=== PATIENT | female | born 1935 | race African-American/Black ===

== ENCOUNTER 2016-10-09 08:54 | Outpatient (CLI) | payer MEDICARE, OTHER | END 2016-10-09 08:55 | disposition home or self-care (01) | DX: M85.80 Other specified disorders of bone density and structure, unspecified site (principal) ==

== ENCOUNTER 2016-11-12 08:03 | Outpatient (CLI) | payer MEDICARE, OTHER | END 2016-11-12 08:04 | disposition home or self-care (01) | DX: K76.0 Fatty (change of) liver, not elsewhere classified (principal); K21.9 Gastro-esophageal reflux disease without esophagitis; Z90.49 Acquired absence of other specified parts of digestive tract ==

== ENCOUNTER 2018-01-20 10:33 | Outpatient (CLI) | payer MEDICARE, OTHER ==
--- NOTE | 2018-01-21 11:38 | XRAY Report ---
RIGHT KNEE, THREE VIEWS: 01/20/2018 HISTORY: Pain. COMPARISON: None. FINDINGS: There is minimal degenerative spurring along the medial knee joint and articular surface of the patella. Quadriceps tendon insertion enthesopathy. Small suprapatellar effusion. No evidence of fracture, malalignment, advanced joint space narrowing , bone destruction or other finding. IMPRESSION: MILD RIGHT KNEE DEGENERATIVE CHANGE COMMENSURATE WITH THE PATIENT' S AGE WITH SMALL SUPRAPATELLAR EFFUSION. NO OTHER ACUTE FINDINGS. TD: 01/21/2018 10:56 LEO
== END 2018-01-20 10:34 | disposition home or self-care (01) ==
LOC: DI.N 10:33
PROVIDERS: ATTEND Internal Medicine
DX: M25.461 Effusion, right knee (principal); S89.91XS Unspecified injury of right lower leg, sequela; W19.XXXS Unspecified fall, sequela

== ENCOUNTER 2018-01-29 10:23 | Outpatient (CLI) | payer MEDICARE, OTHER ==
--- NOTE | 2018-01-31 15:16 | Mammography Report ---
Procedure Date: 01/29/2018 Accession Number: [id number] / [id number] Procedure: MGN - Screening Mammo Dig Bilat CPT Code: FULL RESULT: EXAM: Screening Mammo Dig Bilat DATE: 01/29/2018 10:45 AM CLINICAL HISTORY: 82-year-old for screening TECHNIQUE: Bilateral CC, laterally exaggerated CC, MLO views were obtained. COMPARISON: 05/29/2016, 12/29/2013, 11/17/2012, 08/14/2011, 08/22/2010 FINDINGS: The breasts demonstrate heterogeneously dense fibroglandular parenchyma bilaterally. A few punctate, typically benign calcifications are present. No suspicious masses, clustered microcalcifications, or regions of architectural distortion are identified. IMPRESSION: Benign findings RECOMMENDATION: Routine annual screening unless otherwise clinically indicated. BIRADS CATEGORY 2: Benign findings STANDARD QUALIFYING STATEMENTS: 1. This examination was reviewed with the aid of Computer-Aided Detection (CAD). 2. A negative or benign imaging report should not delay biopsy if clinically suspicious findings are present. Consider surgical consultation if warrented. More than 5% of cancers are not identified by imaging. 3. Dense breasts may obscure an underlying neoplasm.
== END 2018-01-29 10:24 | disposition home or self-care (01) ==
LOC: DI.N 10:23
PROVIDERS: ATTEND Internal Medicine
DX: Z12.31 Encounter for screening mammogram for malignant neoplasm of breast (principal)
CPT/HCPCS: 77067

== ENCOUNTER 2018-03-14 09:21 | Outpatient (CLI) | payer MEDICARE, OTHER ==
--- NOTE | 2018-03-14 11:41 | Ultrasound Report ---
Procedure Date: 03/14/2018 Accession Number: [id number] / [id number] Procedure: US - Abdomen Complete CPT Code: FULL RESULT: EXAM: Abdomen Complete DATE: 03/14/2018 10:48 AM CLINICAL HISTORY: ABDOMINAL PAIN COMPARISON: Abdominal ultrasound 11/12/2016. TECHNIQUE: Real-time scanning was performed with static images obtained. FINDINGS: Liver: Somewhat echogenic with coarse echotexture, decreasing sensitivity for masses however, no masses seen. The sonographic appearance is most often seen with hepatic steatosis. At least 14 cm. Main portal vein flow: Hepatopetal. Gallbladder: The patient is status post cholecystectomy. Biliary System: Common bile duct measures 6 mm. No intrahepatic or extrahepatic ductal dilatation. Pancreas: Visualized portion is unremarkable. Kidneys: Right: 8.7 cm longitudinally. Normal. No contour-deforming mass, stones, or hydronephrosis. IVC and aorta are unremarkable by grayscale ultrasound. IMPRESSION: Echogenic liver, likely hepatic steatosis. RADIA
== END 2018-03-14 09:22 | disposition home or self-care (01) ==
LOC: DI 09:21
PROVIDERS: ATTEND Internal Medicine
DX: K58.9 Irritable bowel syndrome, unspecified (principal); R10.9 Unspecified abdominal pain
CPT/HCPCS: 76700

== ENCOUNTER 2018-05-22 11:49 | Outpatient (CLI) | payer MEDICARE, OTHER ==
--- NOTE | 2018-05-22 15:49 | XRAY Report ---
Reason: OTHER SPECIFIED ARTHRITIS, UNSPECIFIED HAND Procedure Date: 05/22/2018 Accession Number: [id number] / [id number] Procedure: XRN - Hand 3 View BILAT CPT Code: FULL RESULT: EXAMS: 1. RIGHT HAND RADIOGRAPHY 2. LEFT HAND RADIOGRAPHY EXAM DATE: 05/22/2018 12:12 PM. CLINICAL HISTORY: Other specified arthritis, unspecified hand. COMPARISON: None. TECHNIQUE: 3 views each hand. FINDINGS: Right: Bones: Normal. No fractures or bone lesions. Joints: There is joint space loss at the interphalangeal joints which is most pronounced at the second distal interphalangeal joint and third proximal interphalangeal joint as well as the first carpometacarpal joint. Soft Tissues: Normal. No soft tissue swelling. Left: Bones: Normal. No fractures or bone lesions. Joints: Interphalangeal joint space narrowing is more pronounced in the left hand with a distal interphalangeal joint predominant pattern with the exception of the third proximal interphalangeal joint and the first carpometacarpal joint. Soft Tissues: Normal. No soft tissue swelling. IMPRESSION: Left greater than right osteoarthrosis. RADIA
== END 2018-05-22 11:50 | disposition home or self-care (01) ==
LOC: DI.N 11:49
PROVIDERS: ATTEND Internal Medicine
DX: M19.042 Primary osteoarthritis, left hand (principal); M19.041 Primary osteoarthritis, right hand

== ENCOUNTER 2018-09-03 08:59 | Outpatient (CLI) | payer MEDICARE, OTHER ==
--- NOTE | 2018-09-03 15:34 | Ultrasound Report ---
Reason: UPPER ABDOMINAL PAIN, UNSPECIFIED Procedure Date: 09/03/2018 Accession Number: [id number] / [id number] Procedure: US - Abdomen Complete CPT Code: FULL RESULT: EXAM: ABDOMEN ULTRASOUND EXAM DATE: 09/03/2018 10:45 AM. CLINICAL HISTORY: UPPER ABDOMINAL PAIN, UNSPECIFIED. COMPARISON: 03/14/2018. TECHNIQUE: Real-time scanning was performed with static images obtained. FINDINGS: Liver: Normal in size and increased in echotexture. 13.1 cm. Main portal vein flow: Hepatopetal. Gallbladder: Surgically absent Biliary System: Common bile duct measures 4.1 mm. No intrahepatic or extrahepatic ductal dilatation. Pancreas: Imaged portion is unremarkable. Kidneys: Right: 7.6 cm longitudinally. Normal. No contour-deforming mass, stones, or hydronephrosis. Left: 8.8 cm longitudinally. Normal. No contour-deforming mass, stones, or hydronephrosis. Spleen: 7.4 cm. Normal in size and echotexture. Aorta and Inferior Vena Cava: Unremarkable. Free fluid: None. IMPRESSION: Increased hepatic echogenicity suggests fatty infiltration. Status post cholecystectomy. Otherwise negative and similar to priors. RADIA
== END 2018-09-03 09:00 | disposition home or self-care (01) ==
LOC: DI 08:59
PROVIDERS: ATTEND Internal Medicine
DX: R10.10 Upper abdominal pain, unspecified (principal); K76.0 Fatty (change of) liver, not elsewhere classified; Z90.49 Acquired absence of other specified parts of digestive tract
CPT/HCPCS: 76700

== ENCOUNTER 2019-04-21 07:43 | Outpatient (CLI) | payer MEDICARE, OTHER ==
--- NOTE | 2019-04-21 17:01 | Ultrasound Report ---
Reason: UNSPECIFIED ABDOMINAL PAIN, LUQ Procedure Date: 04/21/2019 Accession Number: [id number] / [id number] Procedure: US - Abdomen Complete CPT Code: FULL RESULT: EXAM: ABDOMEN ULTRASOUND EXAM DATE: 04/21/2019 08:48 AM. CLINICAL HISTORY: UNSPECIFIED ABDOMINAL PAIN, LUQ. COMPARISON: ABDOMEN COMPLETE 09/03/2018 9:45 AM ABDOMEN COMPLETE 03/14/2018 9:34 AM. TECHNIQUE: Real-time scanning was performed with static images obtained. FINDINGS: Liver: Normal in size and slightly increased in echotexture. 14.5 cm. Main portal vein flow: Hepatopetal. Gallbladder: Status post cholecystectomy. Biliary System: Common bile duct measures 6 mm. No intrahepatic or extrahepatic ductal dilatation. Pancreas: Obscured by bowel gas. Kidneys: Partially obscured by bowel gas. Right: 7.9 cm longitudinally. Normal. No contour-deforming mass, stones, or hydronephrosis. Left: 8.9 cm longitudinally. Normal. No contour-deforming mass, stones, or hydronephrosis. Spleen: 8.5 cm. Normal in size and echotexture. Aorta and Inferior Vena Cava: Unremarkable. Free fluid: None. IMPRESSION: Similar in appearance to prior ultrasounds of 03/14/2018 and 09/03/2018. Status post cholecystectomy with normal common bile duct size. Mild fatty infiltration of the liver.. Otherwise negative. RADIA
== END 2019-04-21 07:44 | disposition home or self-care (01) ==
LOC: DI 07:43
PROVIDERS: ATTEND Internal Medicine
DX: K76.0 Fatty (change of) liver, not elsewhere classified (principal); R10.12 Left upper quadrant pain; Z90.49 Acquired absence of other specified parts of digestive tract
CPT/HCPCS: 76700

== ENCOUNTER 2019-07-06 10:44 | Outpatient (CLI) | payer MEDICARE, OTHER | END 2019-07-06 10:45 | disposition home or self-care (01) | LOC: NS 10:44 | PROVIDERS: ATTEND Internal Medicine | DX: Z71.3 Dietary counseling and surveillance (principal); E11.22 Type 2 diabetes mellitus with diabetic chronic kidney disease; N18.3 Chronic kidney disease, stage 3 (moderate); E03.9 Hypothyroidism, unspecified; E78.5 Hyperlipidemia, unspecified | CPT/HCPCS: 97802 ==

== ENCOUNTER 2019-12-22 12:52 | Outpatient (CLI) | payer MEDICARE, OTHER ==
--- NOTE | 2019-12-22 20:01 | XRAY Report ---
Reason: CARDIOMEGALY Procedure Date: 12/22/2019 Accession Number: [id number] / [id number] Procedure: XR - Chest 2 View X-Ray CPT Code: 73297 Final Report FULL RESULT: EXAM: CHEST RADIOGRAPHY EXAM DATE: 12/22/2019 01:19 PM. CLINICAL HISTORY: CARDIOMEGALY. Increasing shortness of breath. COMPARISON: CHEST 2 VIEW PA/LAT 07/30/2017 11:21 AM. TECHNIQUE: 2 views. FINDINGS: Lungs/Pleura: Minimal bandlike atelectasis or scarring at the medial left lung base, as before. Otherwise clear. No pleural effusion. No pneumothorax. Normal volumes. Mediastinum: Heart and mediastinal contours are unremarkable. Other: None. IMPRESSION: Normal 2-view chest radiography. RADIA
== END 2019-12-22 12:53 | disposition home or self-care (01) ==
LOC: DI 12:52
PROVIDERS: ATTEND Internal Medicine
DX: I51.7 Cardiomegaly (principal)
CPT/HCPCS: 71046

== ENCOUNTER 2020-04-12 06:57 | Outpatient (CLI) | payer MEDICARE, OTHER ==
--- NOTE | 2020-04-12 09:12 | Ultrasound Report ---
PROCEDURE: Abdomen Complete INDICATIONS: ABD PAIN TECHNIQUE: Real-time scanning was performed of the abdominal and retroperitoneal organs, with image documentatio n. COMPARISON: Ultrasound abdomen, 04/21/2019. FINDINGS: Liver: Liver is normal in size and demonstrates mildly increased hepatic echotexture. Gallbladder: Surgically removed. Biliary ducts: Intrahepatic bile ducts are non-dilated. Extrahepatic bile duct caliber measures 4.5 mm. Normal is 6-7 mm or less in diameter, or 10 mm or less post-cholecystectomy. Pancreas: Visualized portions of the pancreas are sonographically normal. Spleen: Spleen is normal in size and homogeneous in echotexture. Kidneys: Kidneys are normal in size and echotexture. Right kidney measures 8.4 cm long; left kidney measures 8.6 cm long. No hydronephrosis or nephrolithiasis. No solid masses. Aorta: Visualized aorta is normal in caliber at less than 3 cm. Iliacs: Proximal common iliac arteries are not visualized IVC: Intrahepatic inferior vena cava is patent. Miscellaneous: No free abdominal fluid. IMPRESSION: 1. Liver demonstrates increased echotexture consistent with hepatic fatty infiltration. Other hepatoc ellular disease may have a similar appearance. Please correlate with liver enzymes. 2. Cholecystectomy. Reviewed by: Kaushik Downs MD on 04/12/2020 9:11 AM PDT Approved by: Kaushik Downs MD on 04/12/2020 9:11 AM PDT Station ID: [id number]
== END 2020-04-12 06:58 | disposition home or self-care (01) ==
LOC: DI 06:57
PROVIDERS: ATTEND Internal Medicine
DX: R10.9 Unspecified abdominal pain (principal); Z90.49 Acquired absence of other specified parts of digestive tract
CPT/HCPCS: 76700

== ENCOUNTER 2020-04-12 07:03 | Outpatient (CLI) | payer MEDICARE, OTHER ==
--- NOTE | 2020-04-13 12:38 | Ultrasound Report ---
LIMITED ULTRASOUND OF RIGHT BREAST: 04/12/2020 CLINICAL: Palpable right breast lump. Comparison is made to exams dated: 01/29/2018 mammogram, 05/29/2016 mammogram, 12/29/2013 mammogram, mammogram, 08/14/2011 mammogram, and 08/22/2010 mammogram - [facility]. Color flow and real-time ultrasound of the right breast 11 o'clock region were performed. Obrien scale images of the real-time examination were reviewed. There is a 2 cm x 1.1 cm x 2.1 cm oval mass with a circumscribed margin in the right breast at 11 o'c lock posterior depth 11 cm from the nipple. This oval mass is isoechoic to fat and parallel in orien tation with no posterior acoustic shadowing or enhancement. This correlates as palpated and with are a of clinical concern but was not seen on the prior mammogram. Color flow imaging demonstrates that there is no vascularity present. IMPRESSION: PROBABLY BENIGN The 2 cm x 1.1 cm x 2.1 cm oval mass in the right breast most likely is a lipoma and is probably charles gn. A follow-up right ultrasound in 6 months is recommended to demonstrate stability. Findings and recommendations were conveyed to the patient during today's evaluation. This exam was interpreted at Station ID: [id number]. Electronically Signed By: Sebastián López M.D. aty/:04/12/2020 09:52:51 Ultrasound BI-RADS: 3 Probably benign BI-RADS CATEGORY: (3) - 3 Ultrasound [id number] 6 month follow-up LATERALITY: (R)
--- NOTE | 2020-04-13 12:38 | Mammography Report ---
BILATERAL DIGITAL DIAGNOSTIC MAMMOGRAM 3D/2D: 04/12/2020 CLINICAL: Palpable right breast lump. Comparison is made to exams dated: 01/29/2018 mammogram, 05/29/2016 mammogram, 12/29/2013 mammogram, mammogram, 08/14/2011 mammogram, and 08/22/2010 mammogram - [facility]. The tissue of both breasts is heterogeneously dense. This may lower the sensitivity of mammography. No significant masses, calcifications, or other findings are seen in either breast. IMPRESSION: INCOMPLETE: NEEDS ADDITIONAL IMAGING EVALUATION There is no abnormality seen in the right breast to correspond with the area of clinical concern and palpable abnormality indicated by triangular marker in the posterior depth in the upper outer quadran t, however, ultrasound is recommendedwhich is scheduled to immediately follow this examination. This exam was interpreted at Station ID: [id number]. NOTE: For mammograms, a report in lay terms will be sent to the patient. Approximately 15% of breast malignancies will not be visualized mammographically. In the management of a palpable breast mass, a negative mammogram must not discourage biopsy of a clinically suspicious lesion. Electronically Signed By: Sebastián López M.D. aty/:04/12/2020 09:33:06 ACR BI-RADS Category 0: Incomplete 3340F PARENCHYMAL PATTERN: (D) - The breast(s) demonstrate(s) heterogeneously dense fibroglandular nadia sarmiento. BI-RADS CATEGORY: (0) - 0 Ultrasound [id number] Immediate follow-up LATERALITY: (R)
== END 2020-04-12 07:04 | disposition home or self-care (01) ==
LOC: DI 07:03
PROVIDERS: ATTEND Obstetrics & Gynecology
DX: N60.01 Solitary cyst of right breast (principal); N64.4 Mastodynia; N63.11 Unspecified lump in the right breast, upper outer quadrant
CPT/HCPCS: 76642; 77066

== ENCOUNTER 2020-05-13 12:52 | Outpatient (CLI) | payer MEDICARE, OTHER | END 2020-05-13 12:53 | disposition home or self-care (01) | LOC: COV 12:52 | PROVIDERS: ATTEND Internal Medicine | DX: R10.9 Unspecified abdominal pain (principal); D50.0 Iron deficiency anemia secondary to blood loss (chronic); K21.9 Gastro-esophageal reflux disease without esophagitis; R11.0 Nausea; Z20.828 Contact with and (suspected) exposure to other viral communicable diseases ==

== ENCOUNTER 2020-05-20 06:51 | Outpatient (CLI) | payer MEDICARE, OTHER ==
--- NOTE | 2020-05-20 08:28 | Ultrasound Report ---
PROCEDURE: Retroperitoneal INDICATIONS: RENAL FAILURE TECHNIQUE: Real-time scanning was performed of the retroperitoneal organs, with image documentation. COMPARISON: None. FINDINGS: Kidneys: Kidneys are asymmetrically reduced in size. Right kidney measures 7.6 cm long; left kidney measures 8.8 cm long. Right renal cortical thickness is 1.0 cm; left renal cortical thickness is 1. 0 cm. No solid masses, hydronephrosis, or nephrolithiasis. Quality of visualization is somewhat lenz ited by overlying bowel gas during imaging. Pancreas: Visualized portions of the pancreas are sonographically normal. Aorta: Visualized aorta is normal in caliber at 3 cm or less. Iliac arteries: Proximal common iliac arteries are normal in caliber at 2.5 cm or less. IVC: Intrahepatic inferior vena cava is patent. Miscellaneous: No free abdominal fluid. Prevoid bladder volume is 36 cc, postvoid residual of 0 IMPRESSION: No sign of hydronephrosis or nephrolithiasis. Asymmetrically smaller right kidney when compared to th e left. Normal bladder function. Reviewed by: Garland Akins MD on 05/20/2020 8:26 AM PDT Approved by: Garland Akins MD on 05/20/2020 8:26 AM PDT Station ID: [id number]
== END 2020-05-20 06:52 | disposition home or self-care (01) ==
LOC: DI 06:51
PROVIDERS: ATTEND Internal Medicine Nephrology
DX: N17.9 Acute kidney failure, unspecified (principal)
CPT/HCPCS: 76770

== ENCOUNTER 2020-06-15 09:05 | Outpatient (CLI) | payer MEDICARE, OTHER | END 2020-06-15 09:06 | disposition home or self-care (01) | LOC: COV 09:05 | PROVIDERS: ATTEND Family Medicine | DX: R68.83 Chills (without fever) (principal); R43.9 Unspecified disturbances of smell and taste; Z20.828 Contact with and (suspected) exposure to other viral communicable diseases ==

== ENCOUNTER 2020-10-19 13:38 | Outpatient (CLI) | payer MEDICARE, OTHER ==
--- NOTE | 2020-10-20 08:38 | Ultrasound Report ---
LIMITED ULTRASOUND OF RIGHT BREAST: 10/19/2020 CLINICAL: Palpable right breast lump. Comparison is made to exams dated: 04/12/2020 ultrasound, 04/12/2020 mammogram, 05/29/2016 mammogram, 01/29/2018 mammogram, 12/29/2013 mammogram, and 11/17/2012 mammogram - [facility]. Color flow ultrasound of the right breast 11 o'clock region was performed. Obrien scale images of the real-time examination were reviewed. There is a stable 2 cm x 2 cm x 1 cm oval lipoma with a circumscribed margin in the right breast at 1 1 o'clock posterior depth 10 cm from the nipple with the long axis parallel to the skin. This oval l ipoma is isoechoic to adjacent tissue. This correlates as palpated. Color flow imaging demonstrates that there is no vascularity present. IMPRESSION: BENIGN There is no sonographic evidence of malignancy. The 2 cm lipoma in the right breast is stable and is benign. Return to annual mammogram screening schedule is recommended. Findings and recommendations were conveyed to the patient at time of exam. This exam was interpreted at Station ID: [id number]. Electronically Signed By: Brigitte sylvester/:10/19/2020 14:33:17 Ultrasound BI-RADS: 2 Benign BI-RADS CATEGORY: (2) - 2 RECOMMENDATION: (ANNUAL) - Recommend routine annual screening mammography. [id number] return to screening LATERALITY: (B)
== END 2020-10-19 13:39 | disposition home or self-care (01) ==
LOC: DI 13:38
PROVIDERS: ATTEND Obstetrics & Gynecology
DX: N60.01 Solitary cyst of right breast (principal); D17.1 Benign lipomatous neoplasm of skin and subcutaneous tissue of trunk

== ENCOUNTER 2020-10-26 10:55 | Emergency (ER) | payer MEDICARE, OTHER ==
[2020-10-26] MEDS ORDERED: diphenhydrAMINE INJ 50 MG/ML VIAL IM STA (12:43)
[2020-10-26] MEDS ORDERED: FAMOTIDINE 20 MG TABLET PO STA (12:43)
[2020-10-26] MEDS ORDERED: predniSONE 20 MG TABLET PO STA (12:44)
--- NOTE | 2020-10-26 12:48 | ED Physician Documentation ---
History of Present Illness - Stated complaint Stated Complaint: FACE SWELLING/ITCHING - Chief complaint Chief Complaint: Allergic Rx - Additonal information Additional information: 85-year-old female presents the emergency department for evaluation of lip swelling and generalized itchiness. No rash. She states that she has had similar in the past approximately 13 years ago for which she received Benadryl and a course of steroids. She denies any allergies other than tetracycline. No new foods medications or detergents. She is not taking an JOSE inhibitor. She noticed the lip swelling at about 3 AM. She denies chest pain or shortness of breath. Normal sweat phonation and swallow. She does have a history of hypertension and rheumatoid arthritis as well as anemia. Meds: amlodipine, metoprolol, hydrochlorothiazide, Plaquenil, isorbide, Pepcid. Review of Systems Constitutional: denies: Fever, Chills Eyes: reports: Reviewed and negative Ears: reports: Reviewed and negative Nose: reports: Reviewed and negative Throat: reports: Other (lip swelling) Cardiac: reports: Reviewed and negative Respiratory: reports: Reviewed and negative GI: reports: Abdominal Pain : reports: Reviewed and negative Skin: denies: Rash Musculoskeletal: reports: Reviewed and negative Neurologic: reports: Reviewed and negative PD PAST MEDICAL HISTORY - Past Medical History Past Medical History: Yes Cardiovascular: Hypertension, High cholesterol Respiratory: Asthma, Other Endocrine/Autoimmune: Type 2 diabetes, HyPOthyroidism GI: GERD, Diverticulitis, Other : Renal insuffiency, Other Musculoskeletal: Osteoarthritis, Other - Past Surgical History General: Cholecystectomy, Appendectomy, Bowel surgery, EGD /SOLAR FIELD SERVICE TECHNICIAN: Hysterectomy HEENT: Cataracts - Present Medications Home Medications: Ambulatory Orders Medication Instructions Recorded Confirmed Levothyroxine [Synthroid] 75 mcg PO QDAC 12/10/14 10/11/20 Metoprolol Tartrate [Lopressor] 50 mg PO BID 12/10/14 10/11/20 hydroCHLOROthiazide 12.5 mg PO DAILY 12/10/14 10/11/20 [Hydrochlorothiazide] Sitagliptin Phosphate [Januvia] 25 mg PO DAILY 09/20/15 10/11/20 Acetaminophen [Tylenol Extra 1 - 2 tab PO Q8HR PRN 01/05/20 10/11/20 Strength] Colchicine [Colcrys] 1 tab PO BID 01/05/20 10/11/20 Hydroxychloroquine [Plaquenil] 1 tab PO BID 01/05/20 10/11/20 amLODIPine [Norvasc] 1 tab PO DAILY 01/05/20 10/11/20 Ferrous Sulfate [High Potency Iron] 1 tab PO DAILY 04/05/20 10/11/20 Gabapentin 100 mg PO DAILY 04/05/20 10/11/20 Isosorbide Mononitrate [Isosorbide 60 mg PO DAILY 04/05/20 10/11/20 Mononitrate ER] Rosuvastatin Calcium 15 mg PO DAILY 04/05/20 10/11/20 Famotidine [Pepcid] 40 mg PO DAILY #6 tablet 10/26/20 diphenhydrAMINE [Benadryl] 25 mg PO BID #6 10/26/20 predniSONE [Deltasone] 40 mg PO DAILY #6 tab 10/26/20 - Allergies Allergies/Adverse Reactions: Allergies Allergy/AdvReac Type Severity Reaction Status Date / Time meperidine Allergy unknown Verified 10/26/20 11:27 propoxyphene Allergy unknown Verified 10/26/20 11:27 Sulfa (Sulfonamide Allergy unknown Verified 10/26/20 11:27 Antibiotics) Tetracyclines Allergy unknown Verified 10/26/20 11:27 - Social History Does the pt smoke?: No Smoking Status: Never smoker Does the pt drink ETOH?: No Does the pt have substance abuse?: No - Immunizations Immunizations are current?: Yes - POLST Patient has POLST: No PD ED PE EXPANDED - General General: Alert, No acute distress - HEENT HEENT: Atraumatic, PERRL, Moist mucous membranes, Pharynx normal, Other (Mild swelling to both of the lips. No tongue swelling. No swelling the floor of the mouth. Normal phonation. Full range of motion of neck in all planes.). No: Pharyngeal erythema, Swollen tonsils, Tonsillar exudate, ACCOUNTANT CONTROLLER - Cardiac Cardiac: Regular Rate, Murmur Present, Radial strong equal, Pedal strong equal, Cap refill < 2 sec - Respiratory Respiratory: Clear to ausultation virgen. No: Distress, Labored - Abdomen Abdomen: Normal Bowel sounds. No: Tender to palpation - Derm Derm: Normal color, Warm and dry - Extremities Extremities: Normal, Tenderness (Arthritic changes noted to the joints of the hands and fingers.) - Neuro Neuro: Alert and Oriented X 3, CNII-XII intact. No: Confused, Disoriented - GCS Eye Opening: Spontaneous Motor: Obeys Commands Verbal: Oriented Total: 15 Results - Vitals Vitals: Vital Signs - 24 hr 10/26/20 11:23 Temperature 36.5 C Heart Rate 58 L Respiratory 16 Rate Blood Pressure 145/78 H O2 Saturation 100 Oxygen O2 Source Room air PD MEDICAL DECISION MAKING - ED course Complexity details: re-evaluated patient, d/w patient ED course: 85-year-old female presents emergency department for evaluation of upper and lower lip swelling that began this morning as well as generalized itchiness. She has had similar in the past but the last time was approximately 13 years ago. No clear inciting medications foods or hygiene products. Patient was given Benadryl and a dose of prednisone here in the emergency department with the itchiness fully resolving and the lip swelling beginning to dissipate. She has no evidence of airway involvement or Kirk's angina. Patient will be discharged with prescription for Benadryl as well as a short course of steroids. Patient will follow up with primary care doctor emergent return precautions discussed. Departure - Departure Disposition: 01 Home, Self Care Clinical Impression: Lip swelling Allergic reaction Qualifiers: Encounter type: initial encounter Qualified Code(s): T78.40XA - Allergy, unspecified, initial encounter Condition: Stable Record reviewed to determine appropriate education?: Yes Instructions: ED Allergic Reaction General Other Follow-Up: Fe De La Garza MD [Primary Care Provider] - Prescriptions: diphenhydrAMINE [Benadryl] 25 mg PO BID #6 predniSONE [Deltasone] 40 mg PO DAILY #6 tab Famotidine [Pepcid] 40 mg PO DAILY #6 tablet Comments: Please fill the prescription for the Benadryl Pepcid and prednisone and begin taking tomorrow as directed. I would anticipate that the lip swelling resolves over the next 24 to 48 hours. If at any point you are having worsening swelling difficulty speaking swallowing, feel short of air or have chest pain return immediately to the emergency department
[2020-10-26 14:01] VITALS: BP 134/78
== END 2020-10-26 14:01 | disposition home or self-care (01) ==
LOC: ED 10:55
DX: T78.40XA Allergy, unspecified, initial encounter (principal); R22.0 Localized swelling, mass and lump, head; L29.9 Pruritus, unspecified; K21.9 Gastro-esophageal reflux disease without esophagitis; I10 Essential (primary) hypertension; M06.9 Rheumatoid arthritis, unspecified; D64.9 Anemia, unspecified; E11.9 Type 2 diabetes mellitus without complications; Z79.84 Long term (current) use of oral hypoglycemic drugs
CPT/HCPCS: 96372; 99283; 99284; A9270; J1200; J7512

== ENCOUNTER 2021-05-01 13:57 | Outpatient (CLI) | payer MEDICARE, OTHER | END 2021-05-01 13:58 | disposition home or self-care (01) | LOC: COV 13:57 | PROVIDERS: ATTEND Family Medicine | DX: R05 Cough (principal); R53.83 Other fatigue; R68.83 Chills (without fever); R07.0 Pain in throat; R43.9 Unspecified disturbances of smell and taste; R09.81 Nasal congestion; Z20.822 Contact with and (suspected) exposure to COVID-19 ==

== ENCOUNTER 2021-08-03 08:52 | Outpatient (CLI) | payer MEDICARE, OTHER ==
--- NOTE | 2021-08-03 10:50 | Ultrasound Report ---
PROCEDURE: Abdomen Complete INDICATIONS: ABDOMEN PAIN TECHNIQUE: Real-time scanning was performed of the abdominal and retroperitoneal organs, with image documentatio n. COMPARISON: Abdominal ultrasound 04/12/2020, CT abdomen and pelvis 12/10/2014. FINDINGS: Liver: Normal size. Liver surface appears smooth. Increased in echogenicity. Gallbladder: Surgically absent. Biliary ducts: Intrahepatic bile ducts are non-dilated. Extrahepatic bile duct caliber measures 3 m m. Normal is 6-7 mm or less in diameter, or 10 mm or less post-cholecystectomy. Pancreas: Cyst at the head of the pancreas measuring 1.3 x 1 x 0.6 cm. Spleen: Spleen is normal in size and homogeneous in echotexture. Measures 7.3 cm. Kidneys: Kidneys are normal in size. Right kidney measures 8.2 cm long; left kidney measures 8.5 cm long. No hydronephrosis or nephrolithiasis. No solid masses. Aorta: Visualized aorta is normal in caliber at less than 3 cm. Iliacs: Proximal common iliac arteries are normal in caliber at less than 2.5 cm. IVC: Intrahepatic inferior vena cava is patent. Miscellaneous: No free abdominal fluid. IMPRESSION: 1. Increased echogenicity of the hepatic parenchyma. This is most commonly seen in hepatic steatosis. Other forms of hepatocellular disease could have a similar appearance. 2. No hydronephrosis. 3. No biliary ductal dilatation seen. 4. Cyst in the head of the pancreas measuring 1.3 cm. This could represent a small IPMN. This could b e further evaluated with MRI pancreas/MRCP if clinically indicated in this older patient. Reviewed by: Winston Crump MD on 08/03/2021 10:49 AM [facility] Approved by: Winston Crump MD on 08/03/2021 10:49 AM [facility] Station ID: [id number]
== END 2021-08-03 08:53 | disposition home or self-care (01) ==
LOC: DI 08:52
PROVIDERS: ATTEND Internal Medicine
DX: R10.9 Unspecified abdominal pain (principal); K86.2 Cyst of pancreas

== ENCOUNTER 2021-10-09 10:31 | Outpatient (CLI) | payer MEDICARE, OTHER ==
--- NOTE | 2021-10-10 07:06 | Mammography Report ---
BILATERAL DIGITAL SCREENING MAMMOGRAM 3D/2D: 10/09/2021 CLINICAL: Routine screening. Comparison is made to exams dated: 10/19/2020 ultrasound, 04/12/2020 ultrasound, 04/12/2020 mammogram, mammogram, 12/29/2013 mammogram, and 05/29/2016 mammogram - [facility]. Th e tissue of both breasts is heterogeneously dense. This may lower the sensitivity of mammography. There are benign vascular calcifications in both breasts. No significant masses, calcifications, or other findings are seen in either breast. There has been no significant interval change. IMPRESSION: BENIGN There is no mammographic evidence of malignancy. A 1 year screening mammogram is recommended. This exam was interpreted at Station ID: [id number]. NOTE: For mammograms, a report in lay terms will be sent to the patient. Approximately 15% of breast malignancies will not be visualized mammographically. In the management of a palpable breast mass, a negative mammogram must not discourage biopsy of a clinically suspicious lesion. Electronically Signed By: Keith Manning acr/penrad:10/09/2021 12:40:04 ACR BI-RADS Category 2: Benign Finding(s) 3342F PARENCHYMAL PATTERN: (D) - The breast(s) demonstrate(s) heterogeneously dense fibroglandular nadia sarmiento. BI-RADS CATEGORY: (2) - 2 RECOMMENDATION: (ANNUAL) - Recommend routine annual screening mammography. [id number] 1 year screening LATERALITY: (B)
== END 2021-10-09 10:32 | disposition home or self-care (01) ==
LOC: DI.N 10:31
PROVIDERS: ATTEND Internal Medicine
DX: Z12.31 Encounter for screening mammogram for malignant neoplasm of breast (principal)

== ENCOUNTER 2022-10-30 13:24 | Outpatient (CLI) | payer MEDICARE, OTHER ==
--- NOTE | 2022-10-30 16:15 | Ultrasound Report ---
PROCEDURE: Duplex Ext Veins Right INDICATIONS: MYALGIA TECHNIQUE: Real-time imaging, as well as color and pulse Doppler interrogation, were performed of the lower extr emity deep veins from the inguinal ligament to the popliteal fossa. COMPARISON: None. FINDINGS: The deep veins are normally compressible, and free of intraluminal thrombus. Color and pu lse Doppler demonstrate normal phasic intraluminal flow. There is normal augmentation response to di stal compression maneuver. IMPRESSION: No DVT in the right lower extremity. Reviewed by: Kaushik Downs MD on 10/30/2022 3:13 PM [facility] Approved by: Kaushik Downs MD on 10/30/2022 3:13 PM [facility] Station ID: [id number]
--- NOTE | 2022-10-30 16:17 | XRAY Report ---
PROCEDURE: Tib/Fib LT INDICATIONS: MYALGIA TECHNIQUE: 2 views of the tibia and fibula were acquired. COMPARISON: None FINDINGS: Bones: No fractures or dislocations. No suspicious bony lesions. Soft tissues: No suspicious soft tissue calcifications or masses. IMPRESSION: No evidence acute bony abnormality of the left tibia and fibula. Reviewed by: Salas Leach MD on 10/30/2022 4:15 PM PDT Approved by: Salas Leach MD on 10/30/2022 4:15 PM PDT Station ID: [id number]
== END 2022-10-30 13:25 | disposition home or self-care (01) ==
LOC: DI 13:24
PROVIDERS: ATTEND Internal Medicine
DX: M79.18 Myalgia, other site (principal)

== ENCOUNTER 2023-06-05 10:28 | Outpatient (CLI) | payer MEDICARE, OTHER ==
--- NOTE | 2023-06-06 13:40 | Mammography Report ---
BILATERAL DIGITAL SCREENING MAMMOGRAM 3D/2D: 06/05/2023 CLINICAL: Routine screening. Comparison is made to exams dated: 10/09/2021 mammogram, 10/19/2020 ultrasound, 04/12/2020 ultrasound, mammogram, 01/29/2018 mammogram, and 05/29/2016 mammogram - [facility]. Both breasts are heterogeneously dense, which may obscure small masses (category c / 51-75% glandular tissue). There are benign vascular calcifications in both breasts. No significant masses, calcifications, or other findings are seen in either breast. There has been no significant interval change. IMPRESSION: BENIGN There is no mammographic evidence of malignancy. A 1 year screening mammogram is recommended. This exam was interpreted at Station ID: [id number]. NOTE: For mammograms, a report in lay terms will be sent to the patient. Approximately 15% of breast malignancies will not be visualized mammographically. In the management of a palpable breast mass, a negative mammogram must not discourage biopsy of a clinically suspicious lesion. Electronically Signed By: Sebastián López M.D. [email or web address]:06/05/2023 17:58:26 letter sent: No_Letter ACR BI-RADS Category 2: Benign Finding(s) 3342F PARENCHYMAL PATTERN: (D) - The breast(s) demonstrate(s) heterogeneously dense fibroglandular parenchy ma. BI-RADS CATEGORY: (2) - 2 Mammogram [id number] 1 year screening LATERALITY: (B)
== END 2023-06-05 10:29 | disposition home or self-care (01) ==
LOC: DI.N 10:28
PROVIDERS: ATTEND Internal Medicine
DX: Z12.31 Encounter for screening mammogram for malignant neoplasm of breast (principal); R92.333 Mammographic heterogeneous density, bilateral breasts

== ENCOUNTER 2023-07-31 12:43 | Outpatient (CLI) | payer MEDICARE, OTHER ==
--- NOTE | 2023-07-31 19:23 | DEXA Report ---
PROCEDURE: Dexa Spine and/or Hip INDICATIONS: MENOPAUSAL TECHNIQUE: Dual energy x-ray absorptiometry (DEXA) was performed in the regions detailed below. COMPARISON: None. FINDINGS: Lumbar Spine: Bone Mineral Density 1.1-7 g/cm/cm,T score -0.4. Previously 0.1 Left Femoral Neck: Bone Mineral Density 0.794 g/cm/cm, T score -1.8. Previously -0.8 Left Total Hip: Bone Mineral Density 0.787 g/cm/cm,T score -1.8. Previously -1.0 (T score greater or equal to -1.0: NORMAL) (T score from -1.1 to -2.4: OSTEOPENIA) (T score less than or equal to -2.5 to: OSTEOPOROSIS) IMPRESSION: Worsening osteopenia Patients with diagnosis of osteoporosis or osteopenia should have regular bone mineral density assess ment. For those eligible for Medicare, routine testing is allowed once every 2 years. Testing frequ ency can be increased for patients who have rapidly progressing disease or for those who are receivin g medical therapy to restore bone mass. Reviewed by: Vasquez Roth MD on 07/31/2023 6:21 PM [place] Approved by: Vasquez Roth MD on 07/31/2023 6:21 PM [facility] Station ID: [id number]
== END 2023-07-31 12:44 | disposition home or self-care (01) ==
LOC: DI 12:43
PROVIDERS: ATTEND Internal Medicine
DX: N95.9 Unspecified menopausal and perimenopausal disorder (principal); M85.88 Other specified disorders of bone density and structure, other site

== ENCOUNTER 2023-08-13 10:21 | Outpatient (CLI) | payer MEDICARE, OTHER ==
--- NOTE | 2023-08-13 13:56 | XRAY Report ---
PROCEDURE: Foot 3+V BL (Weight Bearing) INDICATIONS: LEFT FOOT PAIN TECHNIQUE: 3 views of the right foot and left foot were acquired. COMPARISON: None. FINDINGS: Bones: No fractures or dislocations. No suspicious bony lesions. Bilateral pes planus and hallux va lgus deformities. Small bilateral dorsal calcaneal bone spurs. 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 Soft tissues: No suspicious soft tissue calcifications or masses. IMPRESSION: No acute bony abnormality. Reviewed by: Johanna Mahan MD, PhD on 08/13/2023 1:54 PM PST Approved by: Johanna Mahan MD, PhD on 08/13/2023 1:54 PM [facility] Station ID: [id number]
== END 2023-08-13 10:22 | disposition home or self-care (01) ==
LOC: DI 10:21
PROVIDERS: ATTEND Podiatrist
DX: M79.672 Pain in left foot (principal)

== ENCOUNTER 2024-02-26 08:00 | Outpatient (CLI) | payer MEDICARE, OTHER ==
[2024-02-26 13:12] LABS: ALBUMIN 4.1 g/dL (3.2-5.5); CALCIUM 9.9 mg/dL (8.5-10.3); PHOSPHORUS 4.3 mg/dL (2.5-5.0); POTASSIUM 3.9 mmol/L (3.5-4.5)
[2024-02-26 13:18] LABS: CREATININE,URINE 18.4 mg/dL; MICROALBUM/CREATININE RATIO,UR 184.8 ug/mg (<30.0); MICROALBUMIN,URINE 3.4 mg/dL
[2024-02-26 13:19] LABS: THYROID STIMULATING HORMONE 2.45 uIU/mL (0.34-5.60)
[2024-02-26 13:25] LABS: FERRITIN 268.6 ng/mL (11.0-306.8)
== END 2024-02-26 23:59 | disposition home or self-care (01) ==
LOC: LAB.N 08:00
PROVIDERS: ATTEND Internal Medicine Nephrology
DX: N18.32 Chronic kidney disease, stage 3b (principal); R80.9 Proteinuria, unspecified; D50.9 Iron deficiency anemia, unspecified; E83.9 Disorder of mineral metabolism, unspecified; M89.9 Disorder of bone, unspecified; E03.9 Hypothyroidism, unspecified
CPT/HCPCS: 36415; 80069; 82043; 82306; 82570; 82728; 83540; 83970; 84439; 84443; 84466

== ENCOUNTER 2024-04-01 10:26 | Outpatient (CLI) | payer MEDICARE, OTHER ==
--- NOTE | 2024-04-01 19:44 | XRAY Report ---
PROCEDURE: Chest 2V INDICATIONS: ENLARGED LYMPH NODES TECHNIQUE: 2 views of the chest were obtained. COMPARISON: None. FINDINGS: Surgical changes and devices: None. Lungs and pleura: There is hyperinflation and chronic interstitial changes without focal infiltrate, pneumothorax or pleural effusion. Mediastinum: Mediastinal contours appear normal. Heart size is normal. Bones and chest wall: No suspicious bony lesions. Overlying soft tissues appear unremarkable. Tho racolumbar convex left scoliosis IMPRESSION: Hyperinflation and chronic interstitial changes Reviewed by: Vasquez Roth MD on 04/01/2024 6:43 PM [facility] Approved by: Vasquez Roth MD on 04/01/2024 6:43 PM [facility] Station ID: [id number]
== END 2024-04-01 10:27 | disposition home or self-care (01) ==
LOC: DI 10:26
PROVIDERS: ATTEND Internal Medicine
DX: R59.1 Generalized enlarged lymph nodes (principal); J84.9 Interstitial pulmonary disease, unspecified

== ENCOUNTER 2024-04-08 12:25 | Outpatient (CLI) | payer MEDICARE, OTHER ==
[2024-04-08 18:21] LABS: CREATININE,URINE 54.6 mg/dL; MICROALBUM/CREATININE RATIO,UR 69.6 ug/mg (<30.0); MICROALBUMIN,URINE 3.8 mg/dL
[2024-04-08 18:29] LABS: ALBUMIN 4.3 g/dL (3.2-5.5); ALBUMIN/GLOBULIN RATIO 1.2 (1.0-2.2); ALKALINE PHOSPHATASE 158 IU/L (42-121); ALT ALANINE AMINOTRANSFERASE 28 IU/L (10-60); AST ASPARTATE AMINOTRANSFERASE 44 IU/L (10-42); BILIRUBIN,TOTAL 0.6 mg/dL (0.2-1.0); BUN - BLOOD UREA NITROGEN 20 mg/dL (6-20); CALCIUM 9.7 mg/dL (8.5-10.3); CARBON DIOXIDE - CO2 29 mmol/L (21-32); CHLORIDE 100 mmol/L (101-111); CHOL/HDL RATIO 2.2 (<4.4); CHOLESTEROL 146 mg/dL; CREATININE 1.1 mg/dL (0.6-1.3); GFR - MDRD 57 (>89); GLUCOSE 84 mg/dL (74-104); HDL CHOLESTEROL 67 mg/dL; LDL CHOLESTEROL,CALCULATED 60 mg/dL; LDL/HDL RATIO 0.9 (<4.4); POTASSIUM 3.5 mmol/L (3.5-4.5); SODIUM 135 mmol/L (135-145); TRIGLYCERIDES 96 mg/dL; VLDL CHOLESTEROL 19 mg/dL
[2024-04-08 19:32] LABS: THYROID STIMULATING HORMONE 2.25 uIU/mL (0.34-5.60)
[2024-04-08 21:28] LABS: ESTIMATED AVERAGE GLUCOSE 97 mg/dL (70-100)
== END 2024-04-08 12:26 | disposition home or self-care (01) ==
LOC: LAB.N 12:25
PROVIDERS: ATTEND Internal Medicine
DX: R59.1 Generalized enlarged lymph nodes (principal); I10 Essential (primary) hypertension; D50.9 Iron deficiency anemia, unspecified; E03.9 Hypothyroidism, unspecified; E11.9 Type 2 diabetes mellitus without complications; E78.5 Hyperlipidemia, unspecified; G90.09 Other idiopathic peripheral autonomic neuropathy; H81.10 Benign paroxysmal vertigo, unspecified ear
CPT/HCPCS: 36415; 80053; 80061; 82043; 82306; 82570; 83036; 83721; 84443